=== PATIENT | male | born 1960 | race Caucasian/White ===

== ENCOUNTER 2018-01-02 07:16 | Emergency (ER) | payer MEDICAID ==
[~2018-01-02] VITALS: Ht 180.3 cm; Wt 84.1 kg
[2018-01-02 08:12] LABS: GLUCOSE,POINT OF CARE 125 MG/DL (70-110)
[2018-01-02] MEDS ORDERED: AmLODIPine BESYLATE 5 MG TABLET PO ONE (08:45)
[2018-01-02] MEDS ORDERED: KETOROLAC TROMETHAMINE 60 MG/2 ML VIAL IM ONE (09:30)
[2018-01-02 10:52] VITALS: BP 196/103
== END 2018-01-02 11:01 | disposition home or self-care (01) ==
LOC: EMS 07:19
DX: S92.041A Displaced other fracture of tuberosity of right calcaneus, initial encounter for closed fracture (principal); I10 Essential (primary) hypertension; W17.89XA Other fall from one level to another, initial encounter; Y93.89 Activity, other specified; Y92.89 Other specified places as the place of occurrence of the external cause; Y99.8 Other external cause status
CPT/HCPCS: 73610; 73630; 73700; 82962; 99284; J1885

== ENCOUNTER 2018-01-19 07:59 | Emergency (ER) | payer MEDICAID ==
[~2018-01-19] VITALS: Ht 180.3 cm; Wt 84.1 kg
[2018-01-19 09:23] VITALS: BP 174/119
[2018-01-19] MEDS ORDERED: AmLODIPine BESYLATE 5 MG TABLET PO ONE (09:30)
== END 2018-01-19 10:05 | disposition home or self-care (01) ==
LOC: EMS 08:00
DX: S92.001D Unspecified fracture of right calcaneus, subsequent encounter for fracture with routine healing (principal); I10 Essential (primary) hypertension; X58.XXXD Exposure to other specified factors, subsequent encounter
CPT/HCPCS: 99284

== ENCOUNTER 2018-02-05 08:03 | Emergency (ER) | payer MEDICAID ==
[~2018-02-05] VITALS: Ht 180.3 cm; Wt 84.1 kg
[2018-02-05 09:27] VITALS: BP 159/89
== END 2018-02-05 10:26 | disposition home or self-care (01) ==
LOC: EMS 08:04
DX: S92.061D Displaced intraarticular fracture of right calcaneus, subsequent encounter for fracture with routine healing (principal); I10 Essential (primary) hypertension; X58.XXXD Exposure to other specified factors, subsequent encounter
CPT/HCPCS: 99284